=== PATIENT | female | born 1995 | race Caucasian/White ===

== ENCOUNTER 2017-09-25 17:51 | Inpatient (IN) | payer MEDICAID ==
[2017-09-26] MEDS ORDERED: LIDOCAINE 1% 300 MG/30 ML SDV ONE (00:37)
[2017-09-26] MEDS ORDERED: OXYTOCIN 10 UNIT/ML VIAL ONE (00:38)
[2017-09-26] MEDS ORDERED: AMMONIA AROMATIC 1 EACH AMP IH ONE (00:38)
[2017-09-26] MEDS ORDERED: LR 1,000 ML IV PRN (01:11)
[2017-09-26] MEDS ORDERED: MISOPROSTOL 200 MCG TAB PR PRN (01:11)
[2017-09-26] MEDS ORDERED: TERBUTALINE SULFATE 1 MG/ML VIAL IV PRN (01:11)
[2017-09-26] MEDS ORDERED: OXYTOCIN 20 UNIT in LR 1,000 ML IV PRN (01:11)
[2017-09-26] MEDS ORDERED: OLIVE OIL 118 ML BTL MISC PRN (01:11)
[2017-09-26] MEDS ORDERED: EPSOM SALT 454 GM TP PRN (01:11)
[2017-09-26] MEDS ORDERED: ACETAMINOPHEN 325 MG TAB PO PRN (01:14)
--- NOTE | 2017-09-26 01:19 | OBDEL ---
Info Type: Vaginal Presentation at Delivery: Vertex L&D Analgesia/Anesthesia Type: None GBS+: No (unknown status -- pt refused testing) - Care Provider Production Team Manager/DOBBY LOOMS PEGGER: Briana Green Indications for Delivery: Spontaneous Labor Vaginal Delivery - Delivery Provider Delivery Physician/CNM: Susie Albright - Labor and Delivery Onset of Contractions Date: 09/25/17 Onset of Contractions Time: 22:35 Onset of Contractions Type: Spontaneous Rupture of Membranes Date: 09/25/17 Rupture of Membranes Time: 22:35 Rupture of Membranes Type: Spontaneous Amniotic Fluid Color: Clear (minimal fluid noted - pt felt 'pop' in tub) Dilation Complete Date: 09/26/17 Dilation Complete Time: 00:22 Placenta Delivery Date: 09/26/17 Placenta Delivery Time: 00:36 Total Hours of Labor: 2 Laceration: 1st Degree (tiny perineal tear) Repair: Other (Specify) (none needed) Vaginal Sponge Count Correct: Yes Vaginal Needle Count Correct: Yes Vaginal Sweep Performed: No EBL: 250 Delivery Events: None Delivery Comment: rapid delivery after complete dilation - controlled by Uzma RN - Medications Labor Augmentation/Induction Methods Used: None Data LEÓN: 09/23/17 Gestational Age: 40 week(s) and 3 day(s) Gutiérrez Delivery Date: 09/26/17 Delivery Time: 00:27 Sex of Infant: Female Score (1 Min): 9 Score (5 Min): 9 ICD10 Worksheet Patient Problems: Problems Problem Status Onset (spontaneous vaginal delivery) Acute
[2017-09-26] MEDS: IBUPROFEN 600 MG TAB PO PRN ×4 (01:21→22:16)
--- NOTE | 2017-09-26 01:31 | GHP ---
[f rep st] HISTORY AND PHYSICAL DATE OF ADMISSION: 09/25/2017 SERVICE: Obstetric. HISTORY OF PRESENT ILLNESS: The patient is a 22-year-old, G3, P2, white female at 40 weeks and 2 day s with an estimated due date of 09/23/2017, who presents with gradually increasing strength of contra ctions throughout the day. The patient states they are not frequent and only occur every 10-15 minut es. When the patient was initially checked on Labor and Delivery at approximately 1800, the patient was fingertip dilated and -3 station, vertex presentation. The patient had a category 1 tracing and was given options as to continued observation on Labor and Delivery versus returning home, but the mackenzie elkins lives in [place] and opted to stay for observation on Labor and Delivery. The patient essential ly continued with very infrequent contractions 10-15 minutes apart, but slowly increasing in intensit y. The patient did report that she possibly felt a pop during a tub bath at 2275. However, had no c ontinued leaking after she got out of the tub. She did however correlate this with much stronger int ensity to the contractions. However, no real increased frequency until immediately prior to delivery . The patient had irregular care and has been seen at [facility] as well as [facility], but has had, by her report, a couple appointments at [facility]. No chart available at the time of admission. CARE: The patient has had a couple visits with [facility] and no known c omplications by the patient's report. LABS: Obtained through the hospital records reveal maternal blood type of A positive with n egative antibody screen. RPR nonreactive. Hepatitis B surface antigen negative. HIV negative. Rub lorrie low positive. There are no other records available. The patient refused GBS testing. PAST MEDICAL HISTORY: The patient denies any contributory medical history. PAST SURGICAL HISTORY: Negative. PAST OBSTETRIC HISTORY: Two term vaginal deliveries 3 and 4 years ago. The patient reports baby's w eights were approximately 5-1/2 pounds. ALLERGIES: The patient reports allergies to clindamycin and latex. CURRENT MEDICATIONS: Unknown. PHYSICAL EXAMINATION: GENERAL: Upon admission, the patient is a well-developed, well-nourished, whi te female. Physical distress with the contractions, but coping well in between. VITAL SIGNS: The patient is afebrile at 98.2. 108/66, 82, 18. heart tone tracings reveal cat egory 1 tracing with intermittent monitoring with the baseline 130s with moderate variability and acc elerations. Occasional small variables noted. Contractions again every 10-15 minutes until approxim ately 3 contractions before delivery, which got down to approximately 3-5 minutes apart. PELVIC: Declined by the patient after the first initial exam until a couple minutes prior to deliver y. At that point, she was noted to be completely dilated and only pushed with the next contraction b efore delivery. EXTREMITIES: Nontender with no edema. ASSESSMENT: Intrauterine at 40 weeks and 2 days. Upon admission, spontaneous onset of lab or. PLAN: Vaginal delivery shortly after becoming completely dilated. /[id number]/MODL
[2017-09-26] MEDS ORDERED: MEASLES,MUMPS&RUBELLA VACC/PF 0.5 ML VIAL SC ONE (03:00)
--- NOTE | 2017-09-26 19:34 | OBPP ---
Progress Note Assessment/Plan: Assessment: 22-year-old s/p PPD#0 Plan: Routine care Continued Ambulate/hydrate Plan discharge home 24-48 hours 09/26/17 19:33 09/26/17 19:34 Subjective/ Course: 09/26/17 19:34 Patient doing well. She reports minimal bleeding and pain. She is taking ibuprofen for her cramps. She is breast-feeding without difficulty. Objective: Temp Pulse Resp BP Pulse Ox 36.7 C 64 17 123/71 H 94 09/26/17 08:00 09/26/17 08:00 09/26/17 08:00 09/26/17 08:00 09/26/17 08:00 Uterine Position/Fundal Height: Umbilicus -1, Midline Uterine Tone: Firm
[2017-09-27 08:39] VITALS: BP 101/66; PULSE 71; RESP 18; TEMP 97.7; O2SAT 94
--- NOTE | 2017-09-27 11:32 | OBPP ---
Progress Note Assessment/Plan: 22 yo now - PPD1 s/p yesterday at 40w2d. - Doing well, fully advanced, ready for home as long as peds is OK with baby leaving. - No labs ordered on admission or PP, minimal lochia. - Pain controlled with PO meds. - F/u with our office at 4 and 6 wks. - Not requiring narcotic pain meds. - Rh positive, Rubella immune. Subjective/ Course: 09/26/17 19:34 Patient doing well. She reports minimal bleeding and pain. She is taking ibuprofen for her cramps. She is breast-feeding without difficulty. 09/27/17 17:20 Doing great, anxious to get home today. Pain controlled not even taking ibuprofen. going well. Objective: Temp Pulse Resp BP Pulse Ox 36.5 C 71 18 101/66 94 09/27/17 08:15 09/27/17 08:15 09/27/17 08:15 09/27/17 08:15 09/27/17 08:15 Physical Exam - Physical Exam General Appearance: alert, no apparent distress Neuro/Psych: alert, normal mood/affect
--- NOTE | 2017-09-27 17:27 | OBGCSDC ---
General Delivery Information - General Info : 3 Para: 3 Abortions: 0 Type: Vaginal L&D Analgesia/Anesthesia Type: None Admission Date: 09/25/17 Labs: None collected during hospital stay. - Hospital Course Intrapartum: : 09/26/17 19:34 Patient doing well. She reports minimal bleeding and pain. She is taking ibuprofen for her cramps. She is breast-feeding without difficulty. 09/27/17 17:20 Doing great, anxious to get home today. Pain controlled not even taking ibuprofen. going well. Vaginal - Delivery Provider Delivery Physician/CNM: Susie Albright - Diagnosis Labor: Spontaneous Rupture of Membranes Type: Spontaneous Amniotic Fluid Color: Clear (minimal fluid noted - pt felt 'pop' in tub) Laceration: 1st Degree (tiny perineal tear) Repair: Other (Specify) (none needed) Delivery Events: None - Delivery EBL: 250 Data LEÓN: 09/23/17 Gestational Age: 40 week(s) and 4 day(s) Gutiérrez Delivery Date: 09/26/17 Delivery Time: 00:27 Sex of : Female Score (1 Min): 9 Score (5 Min): 9 Discharge Information - Discharge Information Condition: Good Instruction/Follow Up: See Instruction Sheet, Four Weeks, Six Weeks
== END 2017-09-27 21:43 | disposition home or self-care (01) | DRG 775 ==
LOC: FLD 17:51 → FOB 09-26 02:37
PROVIDERS: ADMIT Obstetrics & Gynecology; ATTEND Obstetrics & Gynecology
PROC: 10E0XZZ Delivery of Products of Conception, External Approach (ICD-10-PCS; principal; 2017-09-26)
DX: O70.0 First degree perineal laceration during delivery (principal); O48.0 Post-term pregnancy; Z3A.40 40 weeks gestation of pregnancy; Z37.0 Single live birth
CPT/HCPCS: J2590